=== PATIENT | female | born 1940 | race Caucasian/White ===

== ENCOUNTER 2017-05-28 12:55 | Outpatient (RCR) | payer MEDICARE, OTHER, SELFPAY ==
--- NOTE | 2017-06-04 19:24 | HP.SP.AD ---
History - History Date of Eval: 05/28/17 Previous speech therapy: No Smoking Status: Never smoker Hx Tobacco Use: No Hx Smoking Exposure: No - Pain Is pain an issue with your current prescribed condition?: No - Personal Patients Living Arrangements: With Significant Other Subjective Voice - Informal Questioner Do you clear your throat: More than average Do you cough: More than average Do you sing: More than average - Alcoholic Beverage Intake Intake: Never Subjective Clinical Impression - Non-Phonatory Behaviors/Respiration Throat clearing/coughing: Present Objective Voice - Date of Diagnosis Date of diagnosis: 2014 Previous Speech Therapy (If yes, describe): No Other Impressions - Comments Pt Report/History -: The pt is attending this evaluation upon referral from her PCP secondary to a referral from an ENT in 2014. Per PCP documentation, the pt was diagnosed with mild right vocal fold atrophy in 2014 at which time a referral for a voice evaluation was made. However, this is the first time the pt has been evaluated by an DIRECTOR OF STRATEGY & MOBILE. Today, the pt complains of constant coughing, clearing of throat, and frequent loss of voice that began in 1997 and has been consistent since. She states that she has a constant production of phlegm that she cannot bring up or swallow and that it appears to sit on her vocal folds until she loses her voice for a day. The pt provided documentation of >20 doctor appointments re: this condition since 1997, including her PCP, ENTs, pulmonologists, and gastroenterologists, none of which have been able to determine the cause of nor remediate her phlegm. She has undergone swallowing evaluations without any cause for concern. Per pt report, her lungs are clear to auscultation and spirometry is normal, but she can hear wheezing during inhalation during the night. She has recently began waking with a productive cough during the night 10-12x, which she likes as she is able to expectorate some of the phlegm. She reports losing her voice for approximately one day each month, in which she is able to phonate very little associated with excess phlegm. Evaluation -: During the evaluation, the pt presented with a soft, slightly breathy vocal quality without strain or harshness. The pt reports that she has always had a soft voice but that it may be slightly softer now than when she was younger. The pt does report that she used to be in her hinduism choir but that she no longer is due to difficulty reaching the low notes, which is common with presbylarynges. This, however, is not of significant concern for her; she is primarily concerned with complete loss of voice secondary to phlegm. The pt was 100% intelligible to this listener in a one-on-one setting. She cleared her throat 9x and coughed 1x during our hour-long evaluation. She states this level of throat clearing/coughing is normal for her since her symptoms began in 1997 and that she is attempting to clear phlegm. All other aspects of vocal hygiene were reviewed without concern. 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 Secondly, education was provided re: effects of constant/chronic throat clearing/coughing on vocal folds and voice production, with the pt stating that it is necessary or she would become aphonic more often. Recommended follow-up with PCP for further evaulations re: cause of phlegm and/or medical management, as therapy cannot reduce aphonia without medical management to prevent phlegm and associated coughing, throat clearing, and loss of voice. - Recommendations Treatment Warranted: No Education - Patient Instruction Patient Education: Diagnosis
--- NOTE | 2017-06-04 19:27 | HP.SP.AD_ITS ---
History - History Date of Eval: 05/28/17 Previous speech therapy: No Smoking Status: Never smoker Hx Tobacco Use: No Hx Smoking Exposure: No - Pain Is pain an issue with your current prescribed condition?: No - Personal Patients Living Arrangements: With Significant Other Subjective Voice - Informal Questioner Do you clear your throat: More than average Do you cough: More than average Do you sing: More than average - Alcoholic Beverage Intake Intake: Never Subjective Clinical Impression - Non-Phonatory Behaviors/Respiration Throat clearing/coughing: Present Objective Voice - Date of Diagnosis Date of diagnosis: 2014 Previous Speech Therapy (If yes, describe): No Other Impressions - Comments Pt Report/History -: The pt is attending this evaluation upon referral from her PCP secondary to a referral from an ENT in 2014. Per PCP documentation, the pt was diagnosed with mild right vocal fold atrophy in 2014 at which time a referral for a voice evaluation was made. However, this is the first time the pt has been evaluated by an PHARMACOMETRICIAN. Today, the pt complains of constant coughing, clearing of throat, and frequent loss of voice that began in 1997 and has been consistent since. She states that she has a constant production of phlegm that she cannot bring up or swallow and that it appears to sit on her vocal folds until she loses her voice for a day. The pt provided documentation of >20 doctor appointments re: this condition since 1997, including her PCP, ENTs, pulmonologists, and gastroenterologists, none of which have been able to determine the cause of nor remediate her phlegm. She has undergone swallowing evaluations without any cause for concern. Per pt report, her lungs are clear to auscultation and spirometry is normal, but she can hear wheezing during inhalation during the night. She has recently began waking with a productive cough during the night 10-12x, which she likes as she is able to expectorate some of the phlegm. She reports losing her voice for approximately one day each month, in which she is able to phonate very little associated with excess phlegm. Evaluation -: During the evaluation, the pt presented with a soft, slightly breathy vocal quality without strain or harshness. The pt reports that she has always had a soft voice but that it may be slightly softer now than when she was younger. The pt does report that she used to be in her denominational choir but that she no longer is due to difficulty reaching the low notes, which is common with presbylarynges. This, however, is not of significant concern for her; she is primarily concerned with complete loss of voice secondary to phlegm. The pt was 100% intelligible to this listener in a one-on-one setting. She cleared her throat 9x and coughed 1x during our hour-long evaluation. She states this level of throat clearing/coughing is normal for her since her symptoms began in 1997 and that she is attempting to clear phlegm. All other aspects of vocal hygiene were reviewed without concern. 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 Secondly, education was provided re: effects of constant/chronic throat clearing/coughing on vocal folds and voice production, with the pt stating that it is necessary or she would become aphonic more often. Recommended follow-up with PCP for further evaulations re: cause of phlegm and/ or medical management, as therapy cannot reduce aphonia without medical management to prevent phlegm and associated coughing, throat clearing, and loss of voice. - Recommendations Treatment Warranted: No Education - Patient Instruction Patient Education: Diagnosis
== END 2017-05-28 19:00 | disposition home or self-care (01) ==
LOC: SP 12:55
PROVIDERS: Family Provider Family Medicine; PCP Family Medicine; Visit Provider Family Medicine
DX: R05 Cough (principal); R49.9 Unspecified voice and resonance disorder; J38.3 Other diseases of vocal cords
CPT/HCPCS: 92524; G9162; G9163; G9164

== ENCOUNTER 2020-05-18 14:41 | Outpatient (RCR) | payer MEDICARE, SELFPAY ==
[2020-05-18] MEDS: COVID-19 VACC, MRNA(PFIZER)/PF 30 MCG/0.3 ML SYRINGE IM (08:22)
[2020-06-08] MEDS: COVID-19 VACC, MRNA(PFIZER)/PF 30 MCG/0.3 ML SYRINGE IM (08:07)
== END 2020-05-18 23:59 ==
LOC: IMMUN 14:41
PROVIDERS: PCP Family Medicine; Visit Provider Family Medicine
DX: Z23 Encounter for immunization (principal)
CPT/HCPCS: 0001A; 0002A

== ENCOUNTER 2021-10-09 10:00 | Outpatient (RCR) | payer MEDICARE, OTHER, SELFPAY ==
--- NOTE | 2021-09-07 16:18 | HP.PTEVAL_ITS ---
Patient's Visit Information RICHARD GRAYSON is a 81 year old F referred to Physical Therapy by DUYEN JAUREGUI with a diagnosis of LUMBAR RADICULOPATHY. Date of Evaluation: 09/07/21 Physical Therapist: Lety Dale PT, Cert MDT - Visit Plan Frequency: 2x /Week Duration: 4-6 Weeks Plan: US TO LOW BACK X 6. POSTURE CORRECTION/STRENGTHENING, INSTRUCTION IN APPROPRIATE BODY MECHANICS AND ACTIVITY MODIFICATIONS. DLS STARTING WITH A NEUTRAL SPINE PROGRESSING ROM TOLERATED. OVIDIO LE ROM, STRETCHING AND STRENGTHENING. HEP INSTRUCTION. PATIENT IS AGREEABLE. - Subjective Work/Leisure: RETIRED. Present symptoms: NEAR CONSTANT CENTRAL LBP. INTERMITTENT R LE NUMBNESS TO FOOT. PATIENT REPORTS MOST OF THE NUMBNESS IS IN HER FOOT. Present since: ABOUT A YEAR AGO. Pain Scale: WORST 4/10, LEAST 0/10. Currently: 2/10. Commenced as a result of: NO APPARENT REASON. Symptoms at onset: BACK PAIN. Worse: SITTING MAKES R LE NUMBNESS WORSE. LEANING FORWARD TO WORK ON PUZZLES SITTING AND STANDING. BENDING JOBS, STANDING, COOKING. Better: STANDING DECREASES R LE NUMBNESS. LYING DOWN HELPS LBP AND R LE SX'S. Disturbed sleep: NO. Previous history/Previous treatment: H/O CHRONIC LBP. DID TRY CHIROPRACTOR ABOUT 5 YEARS AGO FOR A COUPLE MONTHS WITH TEMPORARY RELIEF. NO LUMBAR SX. NO LUMBAR INJECTIONS. NO FORMAL PHYSICAL THERAPY IN THE PAST. Treatment this episode: ONE CONSULT WITH MIK HERNANDEZ AT [facility] IN [place]. PT CONSULT ORDERED. PATIENT REPORTS THAT MR. JAUREGUI TOLD HER THAT IF PHYSICAL THERAPY DOESN'T HELP HE CAN TRY GIVING HER AN INJECTION. Coughing/sneezing/straining: NEGATIVE. Gait: WALKS ABOUT A MILE OR MORE (20 MINUTES) EVERY DAY AND LEG DOES NOT GET NUMB DURING OR AFTER THE WALK. SHE REPORTS SHE IS LIMITED IN HER WALKER BECAUSE HER BACK GETS TIRED. Bowel or Bladder Dysfunction: NO. Accidents: NO. Unexplained weight loss: NO. Imaging: PATIENT REPORTS RECENT LOW BACK X-RAYS SHOWED THAT HER SPINE IS CURVED. REPORTS RECENT R HIP X-RAYS SHOW THAT HER HIP IS OK. NO MRI BUT PATIENT REPORTS MR. JAUREGUI SAID IT WOULD BE INDICATED IF PT DOESN'T HELP. PMH/Recent major surgery: R THR ABOUT 5 YEARS AGO. HIGH CHOLESTEROL. PATIENT REPORTS SHE IS IN GOOD HEALTH OTHERWISE. LIVES WITH IN ONE STORY HOME WITH BASEMENT BUT DOES NOT GO DOWN THERE VERY MUCH. - Objective Sitting/Standing Posture: FAIR. SCOLIOSIS. Active Correction of posture: FEELS GOOD ON LOW BACK AND NE ON R LE PER PATIENT REPORT. Other Observations: THIS PATIENT AMBULATES INDEP'LY INTO PT WITHOUT ANY ASSISTIVE DEVICES, NO LOB AND GOOD CADANCE. Sensory deficit: OVIDIO LE LIGHT TOUCH SENSATION IS GROSSLY INTACT AND SYMMETRICAL. ROM deficit: MILD OVIDIO LE HIP FLEXOR, HS AND GASTROC SOLEUS COMPLEX TIGHTNESS. Motor deficit: OVIDIO LE'S GROSSLY 5/5 WITH MMT'ING EXCEPT HIPS GRADED 4/5. PATIENT DENIES PAIN WITH TESTING. Dural Signs: NEGATIVE OVIDIO LE DURAL SIGNS. Lumbar mvmt loss: flex - MIN. ext - MOD TO ANA LILIA. R SG - ANA LILIA. L SG - ANA LILIA. PATIENT DENIES INCREASED PAIN OR NUMBNESS WITH LUMBAR ROM TESTING ALL PLANES. Core strength: POOR. Palpation: NO ACUTE THORACIC, LUMBAR OR HIP TENDERNESS. TREATMENT: NEUROMUSCULAR REEDUCATION - RETRAINING OF MVMT AND POSTURE FOR SITTING, LYING AND STANDING ACTIVITIES. - Balance/Special Test Scores Oswestry Low Back Score: 9 TUG Test Time Seconds: 8.92 30 Second Chair Rise Test Seconds: 14 - Goals Goal 1:: DECREASE C/O LBP AND RIGHT LE NUMBNESS. Goal Time Frame: 4-6 Weeks Goal 2:: IMPROVE LIFTING, WALKING, SITTING, STANDING, TRAVEL AND HOMEMAKING FUNCTION. Goal Time Frame: 4-6 Weeks Goal 3:: PATIENT WILL BE INDEP WITH A HEP FOR CONTINUED IMPROVEMENT ONCE FORMAL PHYSICAL THERAPY CONCLUDES. Goal Time Frame: 4-6 Weeks Goal Time Frame: 4-6 Weeks - Anticipated Interventions Patient/Client Instruction: Educate patient on: Condition, Plan of Care, Risk Factors For the Purpose of:: To improve self management Therapeutic Exercise to Include: Strength training, Body mechanics, Postural training, Flexibilty training, Neuromotor development, In an aquatic setting, Dynamic Lumbar Stabilization For the Purpose of:: To decrease pain, To improve muscle performance and motor function, To increase tolerance to activity/condition/position, To improve ability of physical actions for home/community/work/leisure, To improve gait and locomotor functions Cryotherapy (ice pack, ice massage): Yes Thermo therapy (hot pack): Yes Ultrasound (thermal/non thermal): Yes For the Purpose of:: To decrease pain, To improve nutrient delivery to tissue Thank you for the opportunity to evaluate your patient. For Medicare and Medicare HMO plans, please review the plan of care and approve it. It will need to be FAXED BACK to us at [phone] for Medicare purposes. For Medicare only, by signing this I certify the plan of care. Please let me know if there are questions or concerns regarding this plan of care. Physician Signature: Date:
--- NOTE | 2021-10-09 10:28 | HP.PTDCSUM ---
It has been my pleasure to treat RICHARD GRAYSON referred by DUYEN JAUREGUI, with the diagnosis of LUMBAR RADICULOPATHY for a total of 10 visit(s). Discharge Date: 10/09/21 Please see the following information for a summary of their discharge status. Subjective: ONCE IN AWHILE I THINK IT IS TAKING LONGER FOR FOOT NUMBNESS TO COME ON IN SITTING. PATIENT REPORTS HER LOW BACK PAIN IS BETTER BUT HER FOOT NUMBNESS IN SITTING IS HER MAIN PROBLEM. LOW BACK Pain Intensity (Out of 10): 0 RIGHT LE Pain Intensity (Out of 10): 0 % Improvement: 40 Objective/Function: PATIENT WAS SEEN TODAY FOR RE-ASSESSMENT OF PROGRESS TOWARD THE SET PT GOALS AND THE NEED FOR FURTHER PHYSICAL THERAPY VS READINESS FOR DISCHARGE. PATIENT IS REPORTING DECREASED LBP BUT LITTLE TO NO IMPROVEMENT IN HER R FOOT NUMBNESS. PHYSICIAN RE-ASSESSMENT RECOMMENDED AND PATIENT AGREEABLE. UPON EXAM TODAY: Lumbar mvmt loss: flex - MIN. ext - MOD TO ANA LILIA. R SG - ANA LILIA. L SG - ANA LILIA. PATIENT DENIES INCREASED PAIN OR NUMBNESS WITH LUMBAR ROM TESTING ALL PLANES. THIS PT RECOMMENDED ADDING A FEW NEW EX'S TO HEP BUT PATIENT WANTS TO WAIT. WRITTEN INSTRUCTIONS PROVIDED BUT NOT DEMO'D. Goal 1:: DECREASE C/O LBP AND RIGHT LE NUMBNESS. Goal 2:: IMPROVE LIFTING, WALKING, SITTING, STANDING, TRAVEL AND HOMEMAKING FUNCTION. Goal 3:: PATIENT WILL BE INDEP WITH A HEP FOR CONTINUED IMPROVEMENT ONCE FORMAL PHYSICAL THERAPY CONCLUDES. Plan: D/C. PATIENT AGREEABLE. If there are questions or concerns regarding this patient's physical therapy, please feel free to call me at [phone]. Thank you for the referral of this patient. Sincerely, Lety Dale, PT, Cert MDT Balance/Gait/Functional tests - Balance/Special Test Scores Oswestry Low Back Score: 9 TUG Test Time Seconds: 8.92 Tug Test: <10 sec.=free mobile 30 Second Chair Rise Test Seconds: 14
== END 2021-10-09 10:43 | disposition home or self-care (01) ==
LOC: PT 10:00
PROVIDERS: PCP Family Medicine
DX: M54.16 Radiculopathy, lumbar region (principal); Z96.641 Presence of right artificial hip joint
CPT/HCPCS: 97035; 97110; 97112; 97162; 97164; 97530

== ENCOUNTER → 2024-05-13 | Outpatient (CLI) | payer MEDICARE, OTHER, SELFPAY ==
--- NOTE | 2024-05-13 08:05 | MRI_ITS ---
PROCEDURE: BRAIN W/WO CONTRAST REASON FOR EXAM: Asymmetric hearing loss. TECHNIQUE: Multiplanar, multisequence MRI of the brain with and without intravenous gadolinium-based contrast. CONTRAST: 11 mL of IV Clariscan. COMPARISON: None. FINDINGS: Mild global parenchymal atrophy. No midline shift. Periventricular white matter T2/FLAIR hyperintense foci likely representing mild chronic microvascular ischemia. No cerebellar pontine angle masses or abnormal enhancement. No extra-axial blood or fluid collections. The paranasal sinuses are clear. MRI/Brain W/WO Contrast IMPRESSION: No acute intracranial abnormalities. Reading Location: [place] [id number]
== END | disposition home or self-care (01) ==
LOC: MRI 08:01
PROVIDERS: PCP Family Medicine; Referring Provider Otolaryngology Otolaryngology/Facial Plastic Surgery; Visit Provider Otolaryngology Otolaryngology/Facial Plastic Surgery
DX: H90.3 Sensorineural hearing loss, bilateral (principal)
CPT/HCPCS: 70553; A9575

== ENCOUNTER → 2024-12-17 | Outpatient (CLI) | payer MEDICARE, OTHER, SELFPAY ==
--- NOTE | 2024-12-17 13:32 | MRI_ITS ---
PROCEDURE: SPINE LUMBAR (ROUTINE) 12/17/2024 REASON FOR EXAM: LUMBAR RADICULOPATHY TECHNIQUE: Procedure Code: [id number] Modality: MR Procedure: SPINE LUMBAR (ROUTINE) COMPARISON: Lumbar spine MRI 05/16/2023. FINDINGS: Vertebrae: The vertebral bodies are preserved in height and signal. Alignment: Retrolisthesis L2 on L 3 x 2 mm. Conus Medullaris: Unremarkable. T12-L1: Disc desiccation. Disc bulge. Facet joint arthropathy. Mild inferior bilateral foramina stenosis. Mild canal stenosis. L1-2: Disc desiccation. Disc bulge. Facet joint arthropathy. Severe bilateral foramina stenosis. Mild canal stenosis. L2-3: Disc desiccation. Disc bulge. Facet joint arthropathy. Ligamentum flavum hypertrophy. Severe bilateral foramina stenosis. Moderate bilateral foramina stenosis. L3-4: Disc desiccation. Disc bulge. Facet joint arthropathy. Ligamentum flavum hypertrophy. Severe bilateral foramina stenosis. Severe canal stenosis with compression upon the cauda equina nerves. L4-5: Disc bulge. Facet joints arthropathy. Ligamentum flavum hypertrophy. Severe canal stenosis with compression upon the cauda equina nerves. Moderate bilateral foramina stenosis. L5-S1: Disc bulge. Facet joint arthropathy. No significant foraminal or canal stenosis. Sacrum: Unremarkable. MRI/Spine Lumbar (Routine) IMPRESSION: Worsening degenerative changes of the lumbar spine compared to MRI 05/16/2023, predominantly for severe canal stenosis at L3-L4 and L4-L5 with compression upon the cauda equina nerves. Reading Location: [id number]
== END | disposition home or self-care (01) ==
LOC: MRI 13:13
PROVIDERS: PCP Family Medicine; Referring Provider Orthopaedic Surgery Orthopaedic Surgery of the Spine; Visit Provider Orthopaedic Surgery Orthopaedic Surgery of the Spine
DX: M54.16 Radiculopathy, lumbar region (principal)
CPT/HCPCS: 72148